=== PATIENT | male | born 1985 | race Caucasian/White ===

== ENCOUNTER 2021-06-22 18:59 | Emergency (ER) | payer BC, SELFPAY ==
[2021-06-22 19:00] VITALS: BP 144/100; PULSE 86; RESP 16; TEMP 36.4; O2SAT 98; BMI 31.1
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
[2021-06-22 20:39] VITALS: BP 138/60; PULSE 80; RESP 18
== END 2021-06-22 20:39 | disposition home or self-care (01) ==
PROVIDERS: Emergency Provider Emergency Medicine; PCP Family Medicine
DX: S16.1XXA Strain of muscle, fascia and tendon at neck level, initial encounter (principal); S40.012A Contusion of left shoulder, initial encounter; V43.52XA Car driver injured in collision with other type car in traffic accident, initial encounter; Y93.89 Activity, other specified; Y92.410 Unspecified street and highway as the place of occurrence of the external cause; Y99.9 Unspecified external cause status
CPT/HCPCS: 72040; 73030; 99282